=== PATIENT | female | born 1980 | race Caucasian/White ===

== ENCOUNTER 2018-09-11 19:50 | Emergency (ER) | payer BC ==
[~2018-09-11] VITALS: Ht 175.3 cm; Wt 54.4 kg
--- NOTE | 2018-09-11 21:22 | NUR ---
JOSE BLACKWELL at bedside for patient evaluation.
--- NOTE | 2018-09-11 22:47 | NUR ---
Patient discharged to home in stable conditon. Written and verbal after care instructions given. Patient verbalizes understanding of instructions.
[2018-09-11 22:48] VITALS: BP 128/76
== END 2018-09-11 22:50 | disposition home or self-care (01) ==
LOC: ER 19:50
DX: M76.01 Gluteal tendinitis, right hip (principal)
CPT/HCPCS: 73502; A4663